=== PATIENT | male | born 1995 | race Caucasian/White ===

== ENCOUNTER 2019-04-02 12:23 | Emergency (ER) | payer BC, OTHER ==
[~2019-04-02] VITALS: Ht 177.8 cm; Wt 74.8 kg
[2019-04-02 12:51] VITALS: BP 116/73
--- NOTE | 2019-04-02 13:31 | ER.PDOC ---
General Chief Complaint: Skin Rash/Abscess Stated Complaint: SKIN RASH Time seen by MD: 13:18 Source: patient, family History of Present Illness Initial Comments rash itchy, rash, exposed to scabies Severity: moderate Location: facial, neck, trunk, RUE, LUE, RLE, LLE Past Medical History Medical History: no pertinent history Surgical History: no surgical history Social History Alcohol Use: occassionally Drug Use: marijuana Constitutional: no symptoms reported Respiratory: no symptoms reported Cardiovascular: no symptoms reported Skin: rash All Other Systems: Reviewed and Negative Physical Exam General Appearance: alert Skin: warm/dry Location: neck, chest, abdomen, back, RUE, LUE, RLE, LLE Character: linear, urticarial With: scaling, rough texture Respiratory: no resp. distress CVS: reg. rate & rhythm NEURO/PSYCH: oriented x 3 Results/Orders Results/Orders Vital Signs Date Time Temp Pulse Resp B/P (MAP) Pulse Ox O2 Delivery O2 Flow Rate FiO2 04/02/19 12:51 98.2 82 10 116/73 (87) 97 Room Air 04/02/19 12:49 98.2 82 10 97 Departure Time of Disposition: 13:38 Disposition: 01 HOME, SELF-CARE Impression: Primary Impression: Erythema Additional Impression: Scabies Condition: Stable Patient Instructions: Scabies Referrals: PCP,UNKNOWN (PCP) PRIMARY CARE PROVIDER Additional Instructions: Return is symptoms worsen. See PCP as needed Duration or Time Spent with Pa: 15 minutes Return to Work/School Can a patient return to work?: No Can a patient return to school: No Problem Qualifiers ISABELA MOSHER NP Apr 02, 2019 13:31
[2019-04-02] MEDS ORDERED: PERM60CR TP (13:34)
[2019-04-02 13:41] VITALS: BP 116/70
== END 2019-04-02 13:44 | disposition home or self-care (01) ==
LOC: ER 12:23
DX: B86 Scabies (principal); F12.10 Cannabis abuse, uncomplicated
CPT/HCPCS: 99281; 99283